=== PATIENT | female | born 1965 | race Caucasian/White ===

== ENCOUNTER → 2016-08-12 | Outpatient (CLI) | payer OTHER | END | disposition home or self-care (01) | LOC: WOUND 12:43 | PROVIDERS: ATTEND Physician Assistant | DX: S41.132A Puncture wound without foreign body of left upper arm, initial encounter (principal); F41.9 Anxiety disorder, unspecified; F32.9 Major depressive disorder, single episode, unspecified; J45.909 Unspecified asthma, uncomplicated; Z72.89 Other problems related to lifestyle; X58.XXXA Exposure to other specified factors, initial encounter; Y93.89 Activity, other specified; Y92.89 Other specified places as the place of occurrence of the external cause; Y99.8 Other external cause status | CPT/HCPCS: 99204 ==

== ENCOUNTER → 2016-08-19 | Outpatient (CLI) | payer OTHER | END | disposition home or self-care (01) | LOC: WOUND 08:30 | PROVIDERS: ATTEND Physician Assistant | DX: S51.032D Puncture wound without foreign body of left elbow, subsequent encounter (principal); F41.9 Anxiety disorder, unspecified; F32.9 Major depressive disorder, single episode, unspecified; J45.909 Unspecified asthma, uncomplicated; Z72.89 Other problems related to lifestyle; X58.XXXD Exposure to other specified factors, subsequent encounter | CPT/HCPCS: 99213 ==